=== PATIENT | female | born 1930 | race Caucasian/White ===

== ENCOUNTER 2016-11-01 11:01 | Outpatient (CLI) | payer MEDICARE, BC ==
[2016-11-01 11:17] LABS: #Basophils 0.1 thou/uL (0.0-0.2); #Eosinphils 0.2 thou/uL (0.0-0.7); #Lymphocytes 4.9 thou/uL (1.20-3.40); #Monocytes 0.7 thou/uL (0.11-0.59); #Neutrophils 4.9 thou/uL (1.40-6.50); %Basophils 1.2 % (0.0-1.0); %Lymphocytes 45.4 % (21.0-51.0); %Monocytes 6.3 % (0.0-10.0); %Neutrophils 45.2 % (42.0-75.0); Hemoglobin 14.5 g/dL (12.0-16.0); Mean Corpuscular HGB CONC 32.6 g/dL (32.0-36.0); Mean Corpuscular Hemoglobin 33.8 pg (27.0-31.0); Mean Corpuscular Volume 103.7 fl (81.0-99.0); Mean Platelet Volume 6.7 fL (7.4-10.4); Platelet Count 247 thou/uL (130-400); RBC Distribution Width 12.6 % (11.5-14.5); Red Blood Cell (RBC) Count 4.27 mill/uL (4.20-5.40); White Blood Cell (WBC) Count 10.8 thou/uL (4.8-10.8)
[2016-11-01 11:33] LABS: ALT (SGPT) 15 U/L (0-55); AST (SGOT) 20 U/L (5-34); Albumin 4.4 g/dL (3.4-4.8); Alkaline Phosphatase 60 U/L (40-150); Anion Gap 15 mmol/L (10-20); BUN (Urea Nitrogen) 18 mg/dL (9.8-20.1); Bilirubin, Total 0.8 mg/dL (0.2-1.2); Calc. Creatinine Clearance 0 mL/min (70-130); Calcium 9.8 mg/dL (7.8-10.44); Carbon Dioxide 26 mmol/L (23-31); Cardiac Risk 2.8 (Less than 4.5); Chloride 103 mmol/L (98-107); Cholesterol 154 mg/dL (< 200 Desired); Estimated GFR-MDRD 71; Globulin 2.5 g/dL (2.4-3.5); Glucose 96 mg/dL (83-110); HDL Cholesterol 55 mg/dL (>60 Neg Risk); LDL Cholesterol, Calculated 83 mg/dL; Potassium 4.2 mmol/L (3.5-5.1); Protein, Total 6.9 g/dL (5.8-8.1); Sodium 140 mmol/L (136-145); Triglycerides 80 mg/dL (Less than 150)
== END 2016-11-01 11:02 | disposition home or self-care (01) ==
LOC: MADLABBHPM 11:01
PROVIDERS: ATTEND Family Medicine
DX: I10 Essential (primary) hypertension (principal)
CPT/HCPCS: 36415; 80053; 80061; 84443; 85025

== ENCOUNTER 2017-03-16 11:58 | Outpatient (CLI) | payer MEDICARE, BC | END 2017-03-16 11:59 | disposition home or self-care (01) | LOC: MADEKG 11:58 | PROVIDERS: ATTEND Family Medicine | DX: I10 Essential (primary) hypertension (principal) | CPT/HCPCS: 93005; 93010 ==

== ENCOUNTER 2017-11-21 14:23 | Outpatient (CLI) | payer MEDICARE, BC ==
--- NOTE | 2017-11-21 15:02 | RAD ---
TWO VIEWS CHEST: History: Dysphagia. FINDINGS: There is calcification of the aorta. Mild pulmonary vascular congestion is seen. Mild cardiomegaly no karthikeyan. No evidence of effusions, pneumonia, or pneumothorax seen. There is extensive kyphosis of the thoracic spine. Multilevel mid and lower thoracic compression frac tures seen. IMPRESSION: No evidence of acute intrathoracic abnormality seen. POS: [facility]
--- NOTE | 2017-11-21 15:17 | RAD ---
5 VIEWS CERVICAL SPINE: (AP, LATERAL, SWIMMER'S, AND OPEN-MOUTH ODONTOID) Date: 11/21/17 HISTORY: Neck pain FINDINGS: Five views of cervical spine demonstrate disc space height loss with anterior and posterior osteophyt es at C5-6 level. This is compatible with changes of spondylosis. Anterior osteophytes seen in the C3 , C4, C5, and C6 levels. IMPRESSION: No evidence of acute cervical spine fractures or bony lesions. Multilevel cervical degenerative sinclair es and changes of spondylosis seen. POS: [facility]
== END 2017-11-21 14:24 | disposition home or self-care (01) ==
LOC: MADRAD 14:23
PROVIDERS: ATTEND Family Medicine
DX: R13.19 Other dysphagia (principal); M47.892 Other spondylosis, cervical region
CPT/HCPCS: 71046; 72040

== ENCOUNTER 2017-11-22 12:25 | Outpatient (CLI) | payer MEDICARE, BC ==
[2017-11-22 12:56] LABS: #Basophils 0.1 thou/uL (0.0-0.2); #Eosinphils 0.1 thou/uL (0.0-0.7); #Lymphocytes 2.9 thou/uL (1.20-3.40); #Monocytes 0.7 thou/uL (0.11-0.59); %Eosinophils 0.8 % (0.0-10.0); %Lymphocytes 29.4 % (21.0-51.0); %Monocytes 6.8 % (0.0-10.0); Mean Corpuscular Hemoglobin 32.4 pg (27.0-31.0); Mean Corpuscular Volume 98.2 fl (81.0-99.0); Mean Platelet Volume 6.7 fL (7.4-10.4); Platelet Count 236 thou/uL (130-400); RBC Distribution Width 12.8 % (11.5-14.5); Red Blood Cell (RBC) Count 4.32 mill/uL (4.20-5.40); White Blood Cell (WBC) Count 9.7 thou/uL (4.8-10.8)
[2017-11-22 13:14] LABS: ALT (SGPT) 17 U/L (8-55); AST (SGOT) 23 U/L (5-34); Albumin 4.1 g/dL (3.4-4.8); Alkaline Phosphatase 71 U/L (40-150); Anion Gap 16 mmol/L (10-20); BUN (Urea Nitrogen) 17 mg/dL (9.8-20.1); Bilirubin, Total 0.8 mg/dL (0.2-1.2); Calc. Creatinine Clearance 0 mL/min (70-130); Carbon Dioxide 23 mmol/L (23-31); Chloride 105 mmol/L (98-107); Estimated GFR-MDRD 82; Globulin 2.1 g/dL (2.4-3.5); Glucose 95 mg/dL (83-110); Potassium 4.3 mmol/L (3.5-5.1); Protein, Total 6.2 g/dL (6.0-8.3); Sodium 140 mmol/L (136-145)
--- NOTE | 2017-11-22 15:30 | CT ---
CT OF THE SOFT TISSUES OF THE NECK: INDICATION: History of dysphagia. COMPARISON: None. FINDINGS: There is an abnormal soft tissue mass involving the right aryepiglottic fold and right piriform sinus beginning at approximately image 35 of series 2 extending caudad to the level of the false cords wit h a major component of the soft tissue mass seen on image 43 of series 2 measuring 2.6 x 1.5 cm. The lesion on greatest craniocaudad dimension measures approximately 3.9 cm and extends to the level of the right thyroid cartilage with probable invasion of the right thyroid cartilage and extension of th e soft tissue mass into the strap muscles on image 46 of series 2. The lesion also appears to abut t he right arytenoid cartilage. No definite pathologically enlarged lymph nodes are evident. There is a mildly prominent right subma ndibular lymph node measuring 6 mm. The submandibular glands and parotid glands are normal-appearing . The remaining visualized aspects of the aerodigestive tract appear within normal limits. There ar e vascular calcifications involving the aortic arch. There is emphysematous change involving the shruti g apices. There are severe calcifications involving the carotid bulb bilaterally, right greater than left. The visualized intracranial contents are unremarkable. There is scattered degenerative sinclair e. IMPRESSION: 1. Large soft tissue mass involving the right aspect of the hypopharynx extending down to the level of the right larynx highly suspicious for malignancy. ENT consultation is recommended. 2. No definite pathologically enlarged lymph node is evident. There is a nonspecific mildly promine nt right submandibular lymph node. 3. Biapical emphysema. CODE T POS: [facility]
--- NOTE | 2017-11-22 15:35 | CT ---
CONTRAST ENHANCED CT IMAGES CHEST: History: Patient with dysphagia. Technique: Contrast enhanced CT of the chest was performed. IV contrast was given. FINDINGS: Extensive coronary artery calcifications is seen. Compression fractures seen in the T7, T10, and T11 vertebral levels. There is kyphosis of the thoracic spine. Some areas of scarring seen in the lingula and in the right lung base. No evidence of mediastinal or hilar lymphadenopathy seen. There appears to be an area of fluid density just anterior to the upper portion of the right kidney a nd in the region of the possible duodenum concerning for possible duodenal diverticulum. I do, debra r, recommend further evaluation of the abdomen and pelvis using contrast enhanced CT images of abdome n and pelvis with oral contrast to further characterize this region. The gallbladder has been surgically removed. Atherosclerotic calcification of the aorta is seen. The pancreas is unremarkable. Old healed rib fractures seen in the left 4th through 11th ribs. IMPRESSION: 1. Extensive numerous thoracic vertebral body fractures. 2. Coronary artery calcifications. 3. Possible duodenal diverticulum and/or possible fluid filled density in the abdomen or retroperiton eum. Correlate with additional abdominal CT images with oral and IV contrast. POS: [facility]
[2017-11-23] MEDS ORDERED: Iopamidol 370 76% 125 ML VIAL FS ONE (08:06)
== END 2017-11-22 12:26 | disposition home or self-care (01) ==
LOC: MADLABBHPM 12:25
PROVIDERS: ATTEND Family Medicine
DX: R13.19 Other dysphagia (principal); I25.10 Atherosclerotic heart disease of native coronary artery without angina pectoris; S22.009A Unspecified fracture of unspecified thoracic vertebra, initial encounter for closed fracture; J43.9 Emphysema, unspecified; R22.1 Localized swelling, mass and lump, neck
CPT/HCPCS: 36415; 70491; 71260; 80053; 85025